=== PATIENT | female | born 1950 | race Two or more races ===

== ENCOUNTER → 2019-03-13 | Outpatient (CLI) | payer OTHER | END | disposition home or self-care (01) | LOC: RAD 10:06 | DX: R05 Cough (principal); R07.81 Pleurodynia; R07.89 Other chest pain ==

== ENCOUNTER 2020-06-24 08:30 | Outpatient (CLI) | payer OTHER | END 2020-06-24 08:45 | disposition home or self-care (01) | LOC: RAD 08:30 | PROVIDERS: ATTEND Orthopaedic Surgery | DX: M79.672 Pain in left foot (principal); M79.642 Pain in left hand ==